=== PATIENT | female | born 1995 | race Caucasian/White ===

== ENCOUNTER 2021-12-12 10:50 | Outpatient (CLI) | payer MEDICAID, SELFPAY ==
[2021-12-12 12:29] LABS: Absolute Lymphocyte Count 2.34 X10^3/uL (0.83-4.51); Absolute Neutrophil Count 4.6 X10^3/uL (2.0-7.7); Basophil# 0.04 X10^3/uL; Basophil% 0.5 % (0-1); Eosinophil# 0.11 X10^3/uL; Eosinophils% 1.5 % (0-5); Hematocrit 39.7 % (37-47); Hemoglobin 13.3 g/dL (12.0-15.0); Lymphocyte # 2.34 X10^3/ul (0.83-4.51); Lymphocyte % 31.1 % (19-41); Mean Corp Hgb Conc 33.5 g/dL (32-36); Mean Corpuscular Hgb 27.9 pg (27.0-32.0); Mean Corpuscular Volume 83.4 fL (81-99); Mean Platelet Vol. 11.3 fl (6.2-12.0); Monocyte# 0.44 X10^3/uL; Monocyte% 5.9 % (0-10); NRBC Flagged by Analyzer 0 % (0-5); Neutrophil # 4.55 X10^3/uL (2.7-7.7); Neutrophil % 60.5 % (47-70); Platelet Count 275 K/mm3 (150-450); RBC Distribution Width SD 36.4 fl (35.1-43.9); Red Blood Count 4.76 M/mm3 (4.2-5.4); White Blood Count 7.5 K/mm3 (4.4-11.0)
[2021-12-12 13:30] LABS: Albumin, Serum 3.6 g/dL (3.2-5.0); BUN 12 mg/dL (7-18); BUN/Creat Ratio 16.9 RATIO (10-20); Creatinine, Serum 0.71 mg/dL (0.55-1.02); EST Glomerular Filtration Rate 107 mL/min (>60); Est Glom Filt Rate - Afr Amer 129 mL/min (>60); Glucose 205 mg/dL (74-106); Protein, Total 7.5 g/dL (6.4-8.2)
[2021-12-12 13:31] LABS: ALB/GLOB Ratio 0.9 RATIO (0.9-2.4); AST(SGOT) 21 U/L (15-37); Alanine Aminotransfer ALT/SGPT 54 U/L (13-56); Alkaline Phosphatase 86 U/L (45-117); Anion Gap 7 (5-15); Calcium,Total 9.1 mg/dL (8.5-10.1); Chloride 104 mmol/L (98-107); Cholesterol 183 mg/dL (200); Globulin 3.9 g/dL (2.2-4.2); High Density Lipoprotein 32 mg/dL; Potassium 4.1 mmol/L (3.5-5.1); Sodium Level 134 mmol/L (136-145); Thyroid Stim Hormone (TSH) 1.92 uIU/mL (0.358-3.74); Triglycerides 500 mg/dL
== END 2021-12-12 23:59 | disposition home or self-care (01) ==
LOC: BIMLAB 10:51
PROVIDERS: PCP Nurse Practitioner Family; Referring Provider Nurse Practitioner Family; Visit Provider Nurse Practitioner Family
DX: F31.9 Bipolar disorder, unspecified (principal); E11.9 Type 2 diabetes mellitus without complications; I10 Essential (primary) hypertension; J45.909 Unspecified asthma, uncomplicated
CPT/HCPCS: 36415; 80053; 80061; 84443; 85025

== ENCOUNTER 2025-06-11 13:00 | Emergency (ER) | payer SELFPAY ==
[2025-06-11 13:00] VITALS: BP 125/91; PULSE 92; RESP 16; TEMP 36.6; O2SAT 98; BMI 34.5
[2025-06-11 13:30] LABS: Hematocrit 43.4 % (37-47); Hemoglobin 14.8 g/dL (12.0-15.0); Immature Granulocytes Count 0.050 X10^3/uL (0.0-0.0); Mean Corp Hgb Conc 34.1 g/dL (32-36); Mean Corpuscular Volume 83.1 fL (81-99); Mean Platelet Vol. 10.8 fl (6.2-12.0); NRBC Flagged by Analyzer 0 % (0-5); Platelet Count 242 K/mm3 (150-450); RBC Distribution Width CV 12.4 % (11.6-14.6); RBC Distribution Width SD 37.3 fl (35.1-43.9); Red Blood Count 5.22 M/mm3 (4.2-5.4); White Blood Count 9.3 K/mm3 (4.4-11.0)
[2025-06-11] MEDS: 0.9% Normal Saline (1000mL) 1,000 ML 999 ML IV (13:31)
--- NOTE | 2025-06-11 13:45 | EDS_ITS ---
HPI HPI - Female History of Present Illness Chief Complaint: Narrative Narrative: Patient is a 30-year-old female past medical history bipolar disorder, type 2 diabetes, hypertension, asthma who presents to the emergency department chief complaint of vaginal bleeding. States that this is her first and she started spotting yesterday. She notes that she has a small amount of blood on her pad every time she goes to the bathroom. She denies any abdominal pain. PFSH PFSH Medical History Bipolar disorder Type 2 diabetes mellitus Elevated glucose level Hypertension Headache, migraine Asthma Home Medications ?Medication ?Instructions ?Recorded ?Last Taken ?Type albuterol sulfate 90 mcg/actuation 1 - 2 puff inhalati on Q6H PRN 11/15/21 Unknown Rx aerosol inhaler (ProAir HFA) shortness of breath or wh eezing #8.5 grams blood sugar diagnostic (FreeStyle #50 ea 11/15/21 Unkn own Rx Test strips) blood-glucose meter (FreeStyle #1 ea 11/15/21 Unknown Rx System Kit) lancets 28 gauge (FreeStyle #50 ea 11/15/21 Unknown Rx Lancets) Allergy/AdvReac Type Severity Reaction Status Date / Time No Known Allergies Allergy Verified 06/11/25 13:01 Family History Mother Diabetes Grandfather Diabetes Aunt Diabetes Breast cancer Grandmother Colon cancer Other Arthritis Asthma CVA (cerebral vascular accident) Hypertension Social History Smoking Status: Current every day smoker tobacco type: e-cigarettes Electronic Cigarette Use: with nicotine alcohol intake: never substance use type: does not use what type of physical activity do you participate in: none ROS ROS ED ROS Narrative Constitutional: Denies any fevers, chills Abdomen: Denies abdominal pain vomiting diarrhea : Denies any urinary symptoms but complains of vaginal bleeding as noted above Neurological: Denies numbness, weakness, tingling Musculoskeletal: Denies back pain Skin: Denies rashes or lesions EXAM Physical Exam Narrative Exam Narrative: General: Patient was lying in bed rest comfortably did not appear to be in acute distress Head: Atraumatic, normocephalic Eyes: PERRL bilaterally, EOMI bilateral, no conjunctival injection noted Neck: Soft, supple, trachea midline Cardiovascular: Regular rate and rhythm Respiratory: Clear to auscultation bilaterally Abdomen: Soft, nondistended, no tenderness to palpation Extremities: +5/5 strength noted in the bilateral upper and lower extremities, radial pulses +2/4 in the bilateral extremities, no pedal edema exam Neurological: Patient following commands knew that she was at [facility] year is 2024 Skin: Warm, dry, tact no rashes or lesions noted Const Vital Signs: 06/11/25 13:00 Temperature 97.8 F Temperature Source Oral Pulse Rate 92 Respiratory Rate 16 Blood Pressure 125/91 H Blood Pressure Mean 102 Pulse Ox 98 Oxygen Delivery Method Room Air MDM MDM MDM Narrative Medical decision making narrative: Patient is a 30-year-old female who presented to the emergency department the chief complaint of vaginal bleeding. On the differential diagnose includes but not limited to UTI, threatened miscarriage, ectopic . Once the workup is obtained and reviewed she will be reevaluated. Patient CBC reviewed showed no evidence leukocytosis white blood count was noted to be normal at 9.3, Hemofil 14.8, platelet count 242. Patient sodium normal 134, potassium normal 4, creatinine was 0.67. Patient AST and ALT were 70 and 104 respectively. hCG quant was less than 1., Lipase normal 56, test negative. Patient urinalysis showed 250 blood negative nitrates and 100 leukocyte esterase 10-25 white cells with no bacteria noted. I did discontinue the transvaginal ultrasound as she is not . Discussed results with the patient she would like to go home at this point time. Patient will be referred to primary care physician as well as a CAREER SERVICES REPRESENTATIVE. She was vies to return with worsening symptoms or concerns. She is agreeable to plan all questions earns answered she was discharged home in stable condition. Lab Data Labs: Laboratory Results - last 24 hr 06/11/25 06/11/25 06/11/25 13:14 13:25 14:17 WBC 9.3 RBC 5.22 Hgb 14.8 Hct 43.4 MCV 83.1 MCH 28.4 MCHC 34.1 RDW Std Deviation 37.3 RDW Coeff of Shiela 12.4 Plt Count 242 MPV 10.8 Immature Gran % (Auto) 0.500 Neut % (Auto) 66.2 Lymph % (Auto) 25.6 Preble % (Auto) 6.0 Eos % (Auto) 1.1 Baso % (Auto) 0.6 Absolute Neuts (auto) 6.2 Absolute Lymphs (auto) 2.38 Nucleated RBC % 0 Sodium 134 Potassium 4.0 Chloride 97 L Carbon Dioxide 22.1 Anion Gap 15 BUN 8 Creatinine 0.67 L Estim Creat Clear Calc 131.94 Est GFR (MDRD) Non-Af 122 BUN/Creatinine Ratio 12.4 Glucose 294 H Calcium 9.6 Total Bilirubin 0.33 AST 70 H ALT 104 H Alkaline Phosphatase 92 Total Protein 7.8 Albumin 4.7 Globulin 3.1 Albumin/Globulin Ratio 1.5 Lipase 56 HCG, Quant < 1 Serum , Qual NEGATIVE Urine Color SEE COMMENT BELOW Urine Clarity Sl. Cloudy Urine pH 6.0 Ur Specific Randall 1.010 Urine Protein 100 H Urine Glucose (UA) 1000 H Urine Ketones Negative Urine Occult Blood 250 H Urine Nitrite Negative Urine Bilirubin Negative Urine Urobilinogen Normal Ur Leukocyte Esterase 100 H Urine RBC > 100 SEEN Urine WBC 10-25 SEEN Ur Squamous Epith Cells 0-5 SEEN Urine Bacteria 0 SEEN Urine Mucus 0 SEEN Blood Type A NEGATIVE Discharge Plan Triage Chief Complaint: ED Provider: Arthur Mccall Dx/Rx/DC Orders Clinical Impression: Vaginal bleeding, Asthma, Hypertension, Type 2 diabetes mellitus Prescriptions: No Action (DME) lancets [FreeStyle Lancets] 28 gauge misc See Rx Instructions .ROUTE .MEDSUPPLY Qty: 50 3RF Rx Instructions: Check blood glucose daily for type 2 DM (DME) blood-glucose meter [FreeStyle System Kit] Kit See Rx Instructions .ROUTE .MEDSUPPLY Qty: 1 0RF Rx Instructions: check blood glucose daily for type 2 DM (DME) FreeStyle Test Strip See Rx Instructions .ROUTE .MEDSUPPLY Qty: 50 11RF Rx Instructions: check blood glucose daily albuterol sulfate [ProAir HFA] 90 mcg/actuation HFA aerosol inhaler 1 - 2 puff inhalation Q6H PRN (Reason: shortness of breath or wheezing) Qty: 8.5 1RF Primary Care Provider: Care Physician,No Primary Referrals: Care Physician,No Primary [Primary Care Provider] - Augusta Clement MD [[facility] Staff - Active Staff] - Patsy Kahn, LIBRARY SCIENCE INSTRUCTOR-C [[facility]] - Activity Restrictions/Additional Instructions: Your test was negative. Your urine does not show evidence of UTI therefore you do not need any antibiotics. Follow-up with the doctors you are referred to. Return with worsening symptoms or other concerns. Print Language: Jordanian Disposition Disposition: Home, Self Care
[2025-06-11 13:48] LABS: Internal QC Validated? YES +Cl - CLEAR BKGD; Pregnancy, Serum, hCG Quali. NEGATIVE Negative; Record Kit Lot#, Serum Preg. 947241
[2025-06-11 14:09] LABS: AST(SGOT) 70 U/L (<=31); Alanine Aminotransfer ALT/SGPT 104 U/L (<=34); Albumin, Serum 4.7 g/dL (3.5-5.0); Alkaline Phosphatase 92 U/L (35-104); Anion Gap 15 (5-15); BUN 8 mg/dL (4-19); BUN/Creat Ratio 12.4 RATIO (10-20); Calcium,Total 9.6 mg/dL (7.6-11.0); Carbon Dioxide 22.1 mmol/L (21.0-32.0); Chloride 97 mmol/L (98-108); Estimated Creatinine Clearance 131.94 ml/min (50-250); Globulin 3.1 g/dL (2.2-4.2); Glucose 294 mg/dL (70-99); Lipase 56 U/L (13-75); Potassium 4.0 mmol/L (3.3-5.1)
[2025-06-11 14:25] LABS: Mucous, Urine 0 SEEN /hpf (<or=2+)
[2025-06-11 14:28] LABS: hCG Titer Quant., Serum < 1 mIU/mL (<9 non-preg)
[2025-06-11 14:34] LABS: Glucose, Dipstick 1000 mg/dl (Normal); Ketone-Dipstick Negative (Negative); Leukocyte Esterase-Dipstick 100 /ul (Negative); Nitrite-Dipstick Negative (Negative); Occult Blood-Urine 250 /ul (Negative); Protein-Dipstick 100 mg/dl (Negative); Specific Gravity, Urine 1.010 (1.002-1.030); Urine Bilirubin Dipstick Negative (Negative)
[2025-06-11 14:36] LABS: Color, Urine SEE COMMENT BELOW (Yellow)
[2025-06-11 14:51] LABS: Red Blood Cells-Urine > 100 SEEN /hpf (0-5)
[2025-06-11 14:53] LABS: Squamous Epithelial Cells - UA 0-5 SEEN /hpf (5-10)
[2025-06-11 15:19] VITALS: BP 124/90; PULSE 66; RESP 14; TEMP 36.6; O2SAT 100
== END 2025-06-11 15:20 | disposition home or self-care (01) ==
PROVIDERS: Emergency Provider Emergency Medicine; Visit Provider Emergency Medicine
DX: N93.9 Abnormal uterine and vaginal bleeding, unspecified (principal); E11.9 Type 2 diabetes mellitus without complications; I10 Essential (primary) hypertension; J45.909 Unspecified asthma, uncomplicated; F17.290 Nicotine dependence, other tobacco product, uncomplicated
CPT/HCPCS: 80053; 81001; 83690; 84702; 84703; 85025; 86900; 86901; 96360; 96361; 99283; A4216